=== PATIENT | female | born 1965 | race Caucasian/White ===

== ENCOUNTER 2017-05-08 19:01 | Emergency (ER) | payer OTHER ==
[2017-05-08 19:09] VITALS: TEMP 97.7
--- NOTE | 2017-05-08 19:29 | EDPHY ---
H & P Stated Complaint: cut l index finger in immersion car clerk pullman HPI/ROS: Chief complaint: Left pointer finger laceration History of present illness: This is a 51-year-old female who presents to the emergency department for left pointer finger laceration. Patient was using an electric car clerk pullman just prior to arrival when she accidentally pushed the on button when she had her left hand in the car clerk pullman. She sustained a cut to both sides of the tip of the left pointer finger. There has been pain and bleeding, bleeding controlled with a dressing. She denies abnormal sensations. She can still move it well. She denies other injuries. Her tetanus is up-to-date. - Personal History LMP (Females 10-55): 1-7 Days Ago Current Tetanus/Diphtheria Vaccine: Yes - Medical/Surgical History Hx Asthma: No Hx Chronic Respiratory Disease: No Hx Diabetes: No Hx Cardiac Disease: No Hx Renal Disease: No Hx Cirrhosis: No Hx Alcoholism: No Hx HIV/AIDS: No Hx Splenectomy or Spleen Trauma: No Other PMH: dvt - Social History Smoking Status: Never smoked - Physical Exam Exam: General: Alert, nontoxic Skin: There is a 0.5 cm laceration to the medial aspect of the tip of the left pointer finger and a 1 cm laceration to the lateral aspect of the tip of the left pointer finger. Exploration does not reveal foreign body contamination. Musculoskeletal: Patient is flexing and extending her finger well in the MCP, PIP and the DIP joint Vascular: Capillary refill brisk in the left pointer finger Neurologic: Sensation is decreased on the lateral aspect of the left pointer finger using light touch and two-point discrimination, is intact throughout the rest of the finger. Constitutional: Initial Vital Signs Temperature (C) 36.5 C 05/08/17 19:07 Heart Rate 56 L 05/08/17 19:07 Respiratory Rate 18 05/08/17 19:07 Blood Pressure 104/67 05/08/17 19:07 O2 Sat (%) 96 05/08/17 19:07 O2 Delivery Mode Room Air Allergies/Adverse Reactions: No Known Allergies Allergy (Unverified 05/08/17 19:06) Home Medications: Medication Instructions Recorded Lexapro 05/08/17 Medical Decision Making - Diagnostics Imaging: I viewed and interpreted images myself Procedures: Procedure: Laceration repair. Verbal consent was obtained from the patient. The 1 cm laceration on the left pointer finger was anesthetized in the usual fashion. The wound was irrigated, draped and explored to its base with a gloved finger. There were no deep structures involved. No tendon injury was identified. The wound was repaired with 5 0 Prolene, 6 simple interrupted sutures. The wound repair was simple. The procedure was performed by myself. Procedure: Laceration repair. Verbal consent was obtained from the patient. The 0.5 cm laceration on the left pointer finger was anesthetized in the usual fashion. The wound was irrigated, draped and explored to its base with a gloved finger. There were no deep structures involved. No tendon injury was identified. The wound was repaired with 5 0 Prolene, 2 simple interrupted sutures. The wound repair was simple. The procedure was performed by myself. ED Course/Re-evaluation: Patient seen under the supervision of my secondary supervising physician Dr. Zak Payne. Patient presents to the emergency department for a left pointer finger laceration. Good vascular supply to the finger. I am concerned for a nerve injury. No injury seen on x-ray. The wounds are anesthetized, cleaned and repaired. She is placed in tube gauze. I have consulted with hand surgery , Dr. Stanford. He is comfortable with patient being discharged home and following up in clinic. Home care is discussed with patient. The importance of close follow-up with hand surgery is discussed at length. Return precautions given. Patient voiced understanding and agreement with plan. Differential Diagnosis: Included but not to laceration, deep structure injury, foreign body contamination Departure - Departure Disposition: Home, Routine, Self-Care Clinical Impression: Finger laceration Qualifiers: Encounter type: initial encounter Finger: index finger Damage to nail status: without damage Foreign body presence: without foreign body Laterality: left Qualified Code(s): S61.211A - Laceration without foreign body of left index finger without damage to nail, initial encounter Condition: Good Instructions: Care For Your Stitches (ED), Laceration (ED), Acute Wounds (ED) Additional Instructions: Follow-up with a hand surgeon this week for continued evaluation and care. I am concerned you have injured a nerve in your finger and this needs to be further evaluated by the hand surgeon. Stitches to be removed in 7 days, however discussed this with the hand surgeon. If symptoms worsen or new symptoms develop return to the emergency room for recheck. Referrals: Lyudmila Pemberton MD [Primary Care Provider] - As per Instructions Jakub Stanford MD [Medical Doctor] - As per Instructions
[2017-05-08 20:59] VITALS: BP 94/57; PULSE 51; RESP 16; O2SAT 95
== END 2017-05-08 20:59 | disposition home or self-care (01) ==
PROC: 0HQGXZZ Repair Left Hand Skin, External Approach (ICD-10-PCS; principal; 2017-05-08)
DX: S61.211A Laceration without foreign body of left index finger without damage to nail, initial encounter (principal); W26.8XXA Contact with other sharp object(s), not elsewhere classified, initial encounter; Y99.8 Other external cause status; Y93.89 Activity, other specified